=== PATIENT | female | born 1970 | race Caucasian/White ===

== ENCOUNTER 2024-03-29 19:07 | Emergency (ER) | payer MEDICAID ==
[~2024-03-29] VITALS: Ht 165.1 cm; Wt 83.7 kg
[2024-03-29 19:16] VITALS: PULSE 91
[2024-03-29 19:37] VITALS: BP 107/81; RESP 18; TEMP 98.7; O2SAT 98
[2024-03-29] MEDS ORDERED: IBUP-2028 MT (21:54)
== END 2024-03-29 22:01 | disposition home or self-care (01) ==
LOC: ER 19:46
DX: M79.89 Other specified soft tissue disorders (principal); M79.662 Pain in left lower leg; Z98.890 Other specified postprocedural states
CPT/HCPCS: 93971; 99284